=== PATIENT | female | born 1955 | race African-American/Black ===

== ENCOUNTER 2022-07-08 08:18 | Emergency (ER) | payer BC, MEDICAID ==
[~2022-07-08] VITALS: Ht 154.9 cm; Wt 71.0 kg
[2022-07-08 08:28] VITALS: BP 151/84
[2022-07-08] MEDS ORDERED: P50 MT (09:47)
[2022-07-08] MEDS ORDERED: AMOX1TAB16 MT (09:47)
[2022-07-08] MEDS ORDERED: ALBU6.7H3 INH (09:47)
[2022-07-08] MEDS ORDERED: NIRM1TAB PO (13:15)
== END 2022-07-08 10:10 | disposition home or self-care (01) ==
LOC: ER 08:18
DX: U07.1 COVID-19 (principal); J06.9 Acute upper respiratory infection, unspecified; I10 Essential (primary) hypertension; J44.9 Chronic obstructive pulmonary disease, unspecified; Z86.59 Personal history of other mental and behavioral disorders
CPT/HCPCS: 71045; 87426; 87804; 99284; C9803

== ENCOUNTER 2022-11-06 20:00 | Emergency (ER) | payer BC ==
[~2022-11-06] VITALS: Ht 154.9 cm; Wt 66.0 kg
[~2022-11-06 20:00] MED LIST: ALBU6.7H3 INH; AMOX1TAB16 MT; NIRM1TAB PO; P50 MT
[2022-11-07] MEDS ORDERED: KETOROLAC 30MG/ML VIAL IM ONE (00:45)
[2022-11-07] MEDS ORDERED: CYCLOBENZAPRINE 10MG TABLET PO ONE (00:45)
[2022-11-07] MEDS ORDERED: CYCL10TA21 MT (00:50)
[2022-11-07] MEDS ORDERED: NAPR-681 MT (00:50)
[2022-11-07 01:25] VITALS: BP 149/83
== END 2022-11-07 01:27 | disposition home or self-care (01) ==
LOC: ER 20:27
DX: G89.29 Other chronic pain (principal); M25.511 Pain in right shoulder; I10 Essential (primary) hypertension; Z90.710 Acquired absence of both cervix and uterus
CPT/HCPCS: 73030; 96372; 99283; J1885

== ENCOUNTER 2023-06-16 11:47 | Emergency (ER) | payer BC ==
[~2023-06-16] VITALS: Ht 154.9 cm; Wt 68.0 kg
[~2023-06-16 11:47] MED LIST changes: +CYCL10TA21 MT; +NAPR-681 MT
[2023-06-16 11:49] VITALS: O2SAT 100
[2023-06-16] MEDS ORDERED: SODIUM CHLORIDE 0.9% 1,000 ML IV ONE (12:15)
[2023-06-16 12:50] LABS: BASOPHILS % 0.7 % (0.0-2.0); EOSINOPHILS % 2.1 % (0.0-5.0); HEMOGLOBIN. 11.1 g/dL (12.0-16.0); LYMPHOCYTES % 47.5 % (20.0-50.0); MEAN CORPUSCULAR HEMOGLOBIN 27.1 pg (28.0-32.0); MEAN CORPUSCULAR HGB CONC 31.8 g/dL (31.0-37.0); MEAN CORPUSCULAR VOLUME 85.3 fL (81.0-99.0); MEAN PLATELET VOLUME 9.8 fl (7.4-10.4); MONOCYTES % 7.4 % (2.0-8.0); NEUTROPHILS % 42.3 % (40.0-76.0); PLATELET 213 x1000/uL (130-400); RED CELL DISTRIBUTION WIDTH 16.4 % (11.6-14.6)
[2023-06-16 13:34] LABS: CLARITY URINE CLEAR (CLEAR); COLOR URINE YELLOW (YELLOW); GLUCOSE URINE NEGATIVE (NEGATIVE); KETONES URINE NEGATIVE (NEGATIVE); LEUKOCYTE ESTERASE URINE NEGATIVE (NEGATIVE); NITRITE URINE NEGATIVE (NEGATIVE); OCCULT BLOOD URINE NEGATIVE (NEGATIVE); PH URINE 5.5 (4.5-8.0); PROTEIN URINE NEGATIVE (NEGATIVE); SPECIFIC GRAVITY URINE 1.017 (1.005-1.030)
[2023-06-16 13:51] LABS: ALANINE AMINOTRANSFERASE 20 IU/L (10-49); ALBUMIN 3.6 g/dL (3.2-4.8); ASPARTATE AMINOTRANSFERASE 31 IU/L (<34); CALCIUM 8.3 mg/dL (8.7-10.4); CARBON DIOXIDE 19 mEq/L (21-32); CHLORIDE 109 mEq/L (98-107); CREATININE 0.8 mg/dL (0.6-1.0); GLUCOSE 122 mg/dL (70-105); POTASSIUM 3.5 mEq/L (3.5-5.1); PROTEIN TOTAL 6.2 g/dL (6.0-8.3); SODIUM 140 mEq/L (136-145); UREA NITROGEN BLOOD 19 mg/dL (9-23)
[2023-06-16 14:49] VITALS: BP 137/82; PULSE 79; RESP 16; TEMP 98.2
[2023-06-16 15:07] LABS: BILIRUBIN TOTAL 0.2 mg/dL (0.1-1.0)
== END 2023-06-16 14:42 | disposition home or self-care (01) ==
LOC: ER 11:47
DX: G40.509 Epileptic seizures related to external causes, not intractable, without status epilepticus (principal); I10 Essential (primary) hypertension
CPT/HCPCS: 99284; 96360; 80053; 81003; 85025; 36415; 93005; J7030

== ENCOUNTER 2023-11-28 16:20 | Emergency (ER) | payer BC, MEDICAID, MEDICARE ==
[~2023-11-28] VITALS: Ht 165.1 cm; Wt 77.0 kg
[~2023-11-28 16:20] MED LIST changes: +AMLO5TAB88 PO; +KEPP500 PO
[2023-11-28 16:39] VITALS: O2SAT 98
[2023-11-28 17:50] LABS: BASOPHILS % 0.6 % (0.0-2.0); EOSINOPHILS % 1.2 % (0.0-5.0); HEMOGLOBIN. 11.5 g/dL (12.0-16.0); LYMPHOCYTES % 49.7 % (20.0-50.0); MEAN CORPUSCULAR HEMOGLOBIN 26.5 pg (28.0-32.0); MEAN CORPUSCULAR VOLUME 82.7 fL (81.0-99.0); MEAN PLATELET VOLUME 9.8 fl (7.4-10.4); MONOCYTES % 6.7 % (2.0-8.0); NEUTROPHILS % 41.8 % (40.0-76.0); PLATELET 149 x1000/uL (130-400); RED BLOOD CELL COUNT 4.35 mill/uL (4.2-5.4)
[2023-11-28 17:57] LABS: CHLORIDE 110 mEq/L (98-107); POTASSIUM 3.8 mEq/L (3.5-5.1); SODIUM 142 mEq/L (136-145)
[2023-11-28 17:59] LABS: CALCIUM 9.4 mg/dL (8.7-10.4); CARBON DIOXIDE 26 mEq/L (21-32)
[2023-11-28 18:04] LABS: CREATININE 0.8 mg/dL (0.6-1.0); GLUCOSE 133 mg/dL (70-105); TROPONIN I HIGH SENSITIVITY 4 ng/L (3.0-34); UREA NITROGEN BLOOD 11 mg/dL (9-23)
[2023-11-28 18:06] LABS: ALANINE AMINOTRANSFERASE 22 IU/L (10-49); ALBUMIN 4.2 g/dL (3.2-4.8); ASPARTATE AMINOTRANSFERASE 23 IU/L (<34)
[2023-11-28 18:07] LABS: BILIRUBIN TOTAL < 0.2 mg/dL (0.1-1.0); PROTEIN TOTAL 6.5 g/dL (6.0-8.3)
[2023-11-28 18:08] LABS: BILIRUBIN DIRECT < 0.1 mg/dL (<=3.0)
[2023-11-28] MEDS: SODIUM CHLORIDE 0.9% 1,000 ML IV ONE (18:49)
[2023-11-28] MEDS: DIPHENHYDRAMINE 50MG/ML VIAL IV ONE (18:49)
[2023-11-28] MEDS: METOCLOPRAMIDE HCL 10MG/2ML VIAL IV ONE (18:50)
[2023-11-28] MEDS ORDERED: ACET-2708 MT (21:20)
[2023-11-28 21:48] VITALS: BP 158/88; PULSE 75; RESP 19; TEMP 98.1
[2023-11-28 21:56] LABS: CLARITY URINE CLEAR (CLEAR); COLOR URINE YELLOW (YELLOW); GLUCOSE URINE NEGATIVE (NEGATIVE); KETONES URINE NEGATIVE (NEGATIVE); LEUKOCYTE ESTERASE URINE NEGATIVE (NEGATIVE); NITRITE URINE NEGATIVE (NEGATIVE); OCCULT BLOOD URINE NEGATIVE (NEGATIVE); PROTEIN URINE NEGATIVE (NEGATIVE); SPECIFIC GRAVITY URINE 1.013 (1.005-1.030); UROBILINOGEN URINE 0.2 E.U./dL (0.2-1.0)
== END 2023-11-28 21:50 | disposition home or self-care (01) ==
LOC: ER 16:20
DX: R51.9 Headache, unspecified (principal); F32.9 Major depressive disorder, single episode, unspecified; I10 Essential (primary) hypertension; Z90.710 Acquired absence of both cervix and uterus; Z79.899 Other long term (current) drug therapy
CPT/HCPCS: 99284; 96374; 96361; 96375; 80076; 80048; 81003; 83690; 85025; 84484; 36415; J1200; J2765; J7030

== ENCOUNTER 2023-12-24 17:02 | Emergency (ER) | payer BC, MEDICAID ==
[~2023-12-24] VITALS: Ht 154.9 cm; Wt 66.0 kg
[~2023-12-24 17:02] MED LIST changes: +ACET-2708 MT
[2023-12-24 17:04] VITALS: PULSE 88
[2023-12-24 17:08] VITALS: BP 171/84; RESP 16; O2SAT 98
[2023-12-24] MEDS ORDERED: IPRATROPIUM BROMIDE (0.02%) 0.5MG/2.5ML NEB HHN STA (19:02)
[2023-12-24] MEDS ORDERED: ALBUTEROL (0.083%) 2.5MG/3ML NEB HHN STA (19:02)
[2023-12-24] MEDS: DIPHENHYDRAMINE 50MG/ML VIAL IV ONE (20:31)
[2023-12-24 20:32] VITALS: TEMP 98.4
[2023-12-24] MEDS: SODIUM CHLORIDE 0.9% 1,000 ML IV ONE (20:32)
[2023-12-24] MEDS: ACETAMINOPHEN 325MG TABLET PO ONE (20:32)
[2023-12-24] MEDS: METOCLOPRAMIDE HCL 10MG/2ML VIAL IV ONE (20:32)
[2023-12-24] MEDS: METHYLPREDNISOLONE SOD SUCC 125MG/2ML (ACT-O-VIAL) IV STA (22:56)
== END 2023-12-24 23:28 | disposition home or self-care (01) ==
LOC: ER 17:02
DX: R51.9 Headache, unspecified (principal); F32.9 Major depressive disorder, single episode, unspecified; I10 Essential (primary) hypertension; Z90.710 Acquired absence of both cervix and uterus; Z79.899 Other long term (current) drug therapy
CPT/HCPCS: 99284; 96374; 96375; 71045; J1200; J2919; J2765; J7030